=== PATIENT | female | born 2000 | race Caucasian/White ===

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

== ENCOUNTER 2019-05-10 19:03 | Emergency (ER) | payer MEDICAID ==
[~2019-05-10] VITALS: Ht 165.1 cm; Wt 59.0 kg
[2019-05-10 19:21] VITALS: BP 115/58
--- NOTE | 2019-05-10 19:25 | NUR ---
18 Y/O F PRESENTED TO ED WTIH C/O VAGINAL BLEEDING X4 HOURS. PT IS APPROX 6-8 WEEKS . LMP 01/08/19. LOWER ABDOMINAL PAIN AND CRAMPING, 10/10 PAIN. ABDOMEN NON-TENDER. PER PT "DISCHARFE STARTED OUT BROWN AND THEN A FEW HOURS LATER TURNED TO PINKISH-BRIGHT RED." C/O INTENSE MORNING SICKNESS RESULTING APPETITE CHANGES. ERMD NOTIFIED. WILL CONTINUE TO MONITOR.
--- NOTE | 2019-05-10 19:25 | NUR ---
PT AMBULATED TO BED 8.
--- NOTE | 2019-05-10 19:53 | NUR ---
Dr. Nogueira evaluating patient at bedside.
[2019-05-10 20:18] LABS: BASOPHILS % (AUTO) 0.4 % (0.0-2.0); EOSINOPHILS # (AUTO) 0.1 K/uL (0-0.4); EOSINOPHILS % (AUTO) 0.7 % (0.0-4.0); HEMATOCRIT 36.7 % (36-48); HEMOGLOBIN 12.4 g/dL (12.0-16.0); LYMPHOCYTES # (AUTO) 2.4 K/uL (2.5-16.5); LYMPHOCYTES % (AUTO) 29.4 % (20.5-51.1); MEAN CORPUSCULAR HEMOGLOBIN 29 pg (27-31); MEAN CORPUSCULAR HGB CONC 34 g/dL (33-37); MONOCYTES # (AUTO) 0.7 K/uL (0.8-1.0); MONOCYTES % (AUTO) 8.7 % (1.7-9.3); NEUTROPHILS % (AUTO) 60.8 % (42.2-75.2); PLATELET COUNT (AUTO) 212 K/uL (140-450); RED BLOOD CELL COUNT(AUTO) 4.27 MIL/uL (4.20-5.40); RED CELL DISTRIBUTION WIDTH 12.8 % (11.6-13.7); WHITE BLOOD COUNT (AUTO) 8.3 K/uL (4.5-11.0)
[2019-05-10 20:20] LABS: APPEARANCE,URINE HAZY (CLEAR); BILIRUBIN,URINE NEGATIVE (NEGATIVE); BLOOD, URINE 1+ (NEGATIVE); COLOR,URINE YELLOW (YELLOW); LEUKOCYTE ESTERASE ,URINE 1+ (NEGATIVE); NITRITE, URINE NEGATIVE (NEGATIVE); UGLUCOSE NEGATIVE (NEGATIVE)
--- NOTE | 2019-05-10 20:31 | NUR ---
Ultrasound at bedside.
[2019-05-10] MEDS ORDERED: NITROFURANTOIN 100 MG CAP PO ONE (20:50)
--- NOTE | 2019-05-10 20:59 | NUR ---
PT AWAKE, LYING IN BED. FAMILY AT BEDSIDE. VSS AT THIS TIME. WILL CONTINUE TO MONITOR.
--- NOTE | 2019-05-10 21:15 | NUR ---
PT REFUSED RHOGAM INJECTION. DECLINATION SIGNED. DR. BURDEN MADE AWARE.
[2019-05-10] MEDS ORDERED: diphenhydrAMINE 50 MG CAP PO ONE (21:30)
--- NOTE | 2019-05-10 21:35 | NUR ---
PT AGREED TO RHOGAM INJECTION. CONSENT SIGNED.
--- NOTE | 2019-05-10 21:45 | NUR ---
PT C/O NAUSEA. ERMD NOTIFIED. WILL CONTINUE TO MONITOR.
[2019-05-10] MEDS ORDERED: ONDANSETRON 4 MG/2 ML VIAL IVP ONE (21:55)
[2019-05-10] MEDS ORDERED: NACL 0.9% 1,000 ML IV ONE (21:55)
[2019-05-10 22:52] VITALS: BP 110/61
--- NOTE | 2019-05-10 23:45 | NUR ---
RHOGAM INJECTION ADMINSTERED. PT DID NOT WANT TO WAIT TO ALLOW TO WATCH FOR ADVERSE REACTION. RISKS ADN BENEFITS EXPLAINED.
== END 2019-05-10 23:50 | disposition home or self-care (01) ==
LOC: MED 19:03
DX: O20.0 Threatened abortion (principal); O23.41 Unspecified infection of urinary tract in pregnancy, first trimester; Z3A.01 Less than 8 weeks gestation of pregnancy; Z91.013 Allergy to seafood; Z91.018 Allergy to other foods
CPT/HCPCS: 36415; 76817; 81001; 81025; 84702; 85025; 86850; 86886; 86900; 86901; 87086; 96374; 99284; J2405; J2790; J7030; Q0092; Q0163

== ENCOUNTER 2019-05-15 22:21 | Emergency (ER) | payer MEDICAID ==
[~2019-05-15] VITALS: Ht 167.6 cm; Wt 59.0 kg
[2019-05-15 22:30] VITALS: BP 110/63
--- NOTE | 2019-05-15 22:33 | NUR ---
TO LOBBY A/W BED, AMBULATORY
--- NOTE | 2019-05-16 00:09 | NUR ---
PT CALLED WITH NO RESPONSE. LWBS AT 0009.
--- NOTE | 2019-05-16 00:15 | NUR ---
PT CALLED AT THIS TIME, NO RESPONSE.
--- NOTE | 2019-05-16 00:25 | NUR ---
PT CALLED AT THIS TIME, NO RESPONSE. PT LWBS AT 0009.
== END 2019-05-16 00:09 | disposition left against medical advice (07) ==
LOC: MED 22:21
DX: O20.9 Hemorrhage in early pregnancy, unspecified (principal); O26.891 Other specified pregnancy related conditions, first trimester; M54.5 Low back pain; M79.632 Pain in left forearm; Z3A.01 Less than 8 weeks gestation of pregnancy; Z53.21 Procedure and treatment not carried out due to patient leaving prior to being seen by health care provider

== ENCOUNTER 2019-05-19 20:20 | Emergency (ER) | payer MEDICAID ==
[~2019-05-19] VITALS: Ht 167.6 cm; Wt 59.0 kg
[2019-05-19 20:26] VITALS: BP 110/64
--- NOTE | 2019-05-19 20:30 | NUR ---
PT TAKEN TO BED 1
--- NOTE | 2019-05-19 20:33 | NUR ---
Dr. Gotti examining patient.
--- NOTE | 2019-05-19 20:35 | NUR ---
PT IS A 18 Y/O FEMALE WHO PRESENTS TO THE ED C/O LOWER ABD PAIN. PER PT SYMPTOMS HAVE BEEN GOING ON X3 DAYS, REPORTS BEING X8 WEEKS LMP 01/20. PT REPORTS 8/10 CRAMPING LOWER ABD PAIN AND LOW BACK PAIN. NO OBVIOUS TRAUMA/DEFORMITY. THAT DOES NOT RADIATE. PT DENIES CP, SOB, REPORTS NAUSEA/VOMITING DENIES DIARRHEA. ALSO REPORTS VAGINAL BLEEDING. PT AWAKE AND ALERT, RR EVEN/UNLABORED. PT REPOSITIONED FOR COMFORT, BED IN LOWEST POSITION. ER MD DR. LOZANO NOTIFIED. WILL CONTINUE TO MONITOR. DENIES PMH ALLERGIES--GLUTEN, SHRIMP
[2019-05-19] MEDS ORDERED: NACL 0.9% 1,000 ML IV ONE (20:40)
[2019-05-19] MEDS ORDERED: ONDANSETRON 4 MG/2 ML VIAL IVP ONE (20:40)
[2019-05-19 21:01] LABS: BASOPHILS % (AUTO) 0.3 % (0.0-2.0); EOSINOPHILS # (AUTO) 0.1 K/uL (0-0.4); EOSINOPHILS % (AUTO) 0.5 % (0.0-4.0); HEMATOCRIT 39.8 % (36-48); HEMOGLOBIN 13.4 g/dL (12.0-16.0); LYMPHOCYTES # (AUTO) 2.2 K/uL (2.5-16.5); LYMPHOCYTES % (AUTO) 20.8 % (20.5-51.1); MEAN CORPUSCULAR HEMOGLOBIN 29 pg (27-31); MEAN CORPUSCULAR HGB CONC 34 g/dL (33-37); MEAN CORPUSCULAR VOLUME 86.7 fL (80-94); MONOCYTES # (AUTO) 0.7 K/uL (0.8-1.0); MONOCYTES % (AUTO) 6.7 % (1.7-9.3); NEUTROPHILS # (AUTO) 7.4 K/uL (1.8-7.7); NEUTROPHILS % (AUTO) 71.7 % (42.2-75.2); PLATELET COUNT (AUTO) 216 K/uL (140-450); RED BLOOD CELL COUNT(AUTO) 4.59 MIL/uL (4.20-5.40); RED CELL DISTRIBUTION WIDTH 13.2 % (11.6-13.7); WHITE BLOOD COUNT (AUTO) 10.4 K/uL (4.5-11.0)
[2019-05-19 21:07] LABS: APPEARANCE,URINE CLEAR (CLEAR); BILIRUBIN,URINE NEGATIVE (NEGATIVE); BLOOD, URINE NEGATIVE (NEGATIVE); COLOR,URINE YELLOW (YELLOW); LEUKOCYTE ESTERASE ,URINE NEGATIVE (NEGATIVE); NITRITE, URINE NEGATIVE (NEGATIVE); UGLUCOSE NEGATIVE (NEGATIVE)
[2019-05-19 21:33] LABS: ANION GAP 15.4 (8-16); CARBON DIOXIDE 25.9 mmol/L (21-32); CREATININE 0.5 mg/dL (0.6-1.3); POTASSIUM 3.3 mmol/L (3.5-5.1)
[2019-05-19 21:38] LABS: ALBUMIN 4.2 g/dL (3.4-5.0); TOTAL BILIRUBIN 0.3 mg/dL (0.0-1.0)
--- NOTE | 2019-05-19 22:42 | NUR ---
PT MOVED TO ER BED 7
--- NOTE | 2019-05-19 23:00 | NUR ---
PATIENT REPORT GIVEN TO JENNA LOYA. TRANSFER OF CARE AT THIS TIME.
[2019-05-19 23:18] VITALS: BP 116/79
--- NOTE | 2019-05-19 23:19 | NUR ---
Patient discharged with v/s stable. Written and verbal after care instructions given and explained. Patient alert, oriented and verbalized understanding of instructions. Ambulatory with steady gait. All questions addressed prior to discharge. ID band removed. Patient advised to follow up with PMD. Rx of DICLEGIS given. Patient educated on indication of medication including possible reaction and side effects. Opportunity to ask questions provided and answered.
--- NOTE | 2019-05-20 12:53 | NUR ---
Late entry. Confirmed with RN that 0.9 NS 1000ml IV bolus completed at 2150.
== END 2019-05-19 23:19 | disposition home or self-care (01) ==
LOC: MED 20:20
DX: O21.8 Other vomiting complicating pregnancy (principal); O26.891 Other specified pregnancy related conditions, first trimester; M54.5 Low back pain; Z3A.01 Less than 8 weeks gestation of pregnancy; Z91.013 Allergy to seafood; Z91.018 Allergy to other foods; Z98.890 Other specified postprocedural states
CPT/HCPCS: 36415; 76817; 80053; 81003; 81025; 84702; 85025; 96361; 96374; 99284; J2405; J7030; Q0092

== ENCOUNTER 2019-09-04 19:13 | Emergency (ER) | payer MEDICAID ==
[~2019-09-04] VITALS: Ht 165.1 cm; Wt 59.0 kg
[2019-09-04 19:20] VITALS: BP 124/71
--- NOTE | 2019-09-04 19:20 | NUR ---
TO BED # 07 AMBULATORY
--- NOTE | 2019-09-04 19:44 | NUR ---
Dr. Aguiar examining patient.
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
[2019-09-04 20:25] VITALS: BP 104/53
--- NOTE | 2019-09-04 20:25 | NUR ---
PT DISCHARGED WITH PAPERWORK. RX MOTRIN AND TYLENOL FOR PAIN. EDUCATED PT REGARDING MEDICATIONS AND S/E. EDUCATED PT REGARDING D/C DIAGNOSIS AND INSTRUCTIONS. PT VERBALIZED UNDERSTANDING OF TEACHING. ADVISED PT TO GO TO [employer] IF SHE WISHES TO REPORT INCIDENT. TOLD PT TO FOLLOW UP WITH PCP AND WHEN TO RETURN TO ED. PT VSS. ALL QUESTIONS ANSWERED.
== END 2019-09-04 20:25 | disposition home or self-care (01) ==
LOC: MED 19:13
DX: S06.0X9A Concussion with loss of consciousness of unspecified duration, initial encounter (principal); S00.83XA Contusion of other part of head, initial encounter; S90.31XA Contusion of right foot, initial encounter; S02.5XXA Fracture of tooth (traumatic), initial encounter for closed fracture; Z98.890 Other specified postprocedural states; Z88.8 Allergy status to other drugs, medicaments and biological substances; Z91.013 Allergy to seafood; Y09 Assault by unspecified means; Y93.89 Activity, other specified; Y92.89 Other specified places as the place of occurrence of the external cause; Y99.8 Other external cause status
CPT/HCPCS: 81025; 99283

== ENCOUNTER 2019-11-18 00:15 | Emergency (ER) | payer MEDICAID ==
[~2019-11-18] VITALS: Ht 165.1 cm; Wt 58.1 kg
[2019-11-18 00:20] VITALS: BP 113/68
--- NOTE | 2019-11-18 00:22 | NUR ---
TO LOBY A/W BED AMBULATORY
--- NOTE | 2019-11-18 01:07 | NUR ---
PT AMBULATED TO ER BED 04
--- NOTE | 2019-11-18 01:19 | NUR ---
Dr. Gotti examining patient.
--- NOTE | 2019-11-18 01:23 | NUR ---
PELVIC EXAM COMPLETED BY DR. LOZANO.
--- NOTE | 2019-11-18 01:40 | NUR ---
19 Y/O FEMALE PRESENTS TO ED WITH IUD PLACEMENT INSPECTION. PT C/O ABDOMINAL CRAMPING. PT DENIES ANY PAIN URINATING. NO HEMATURIA NOTED. PT DENIES ANY ABDOMINAL PAIN. PT VSS. ERMD AWARE. WILL CONTINUE TO MONITOR.
--- NOTE | 2019-11-18 02:15 | NUR ---
Pt left without DC instructions and DC paperwork. Dr. smith made aware.
== END 2019-11-18 02:15 | disposition home or self-care (01) ==
LOC: MED 00:15
DX: R10.2 Pelvic and perineal pain (principal); Z30.431 Encounter for routine checking of intrauterine contraceptive device; Z91.013 Allergy to seafood; Z91.02 Food additives allergy status
CPT/HCPCS: 81002; 81025; 99283

== ENCOUNTER 2019-12-20 23:04 | Emergency (ER) | payer MEDICAID ==
--- NOTE | 2019-12-20 23:10 | NUR ---
PATIENT CALLED TO BE TRIAGE ,NO RESPONSE PATIENT LEFT WITHOUT BEING SEEN BY DR. CUEVAS. NO FURTHER CARE PROVIDED FOR PATIENT.
--- NOTE | 2019-12-20 23:15 | NUR ---
CALLED FOR THE SECOND TIME NO RESPONSE
--- NOTE | 2019-12-20 23:20 | NUR ---
CALLED FOR THE THIRD TIME NO RESPONSE
== END 2019-12-20 23:10 | disposition left against medical advice (07) ==
LOC: MED 23:04
DX: R51 Headache (principal); Z53.21 Procedure and treatment not carried out due to patient leaving prior to being seen by health care provider

== ENCOUNTER 2020-08-25 20:42 | Emergency (ER) | payer MEDICAID ==
[~2020-08-25] VITALS: Ht 170.2 cm; Wt 59.4 kg
[2020-08-25 20:48] VITALS: BP 123/50
--- NOTE | 2020-08-25 20:53 | NUR ---
PT AMBULATED TO BED 07.
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
--- NOTE | 2020-08-25 20:59 | NUR ---
ERMD AT BEDSIDE EVALUATING PT
[2020-08-25] MEDS ORDERED: ONDANSETRON 4 MG/2 ML VIAL IM ONE (21:05)
[2020-08-25] MEDS ORDERED: ONDANSETRON 4 MG ODT PO ONE (21:10)
--- NOTE | 2020-08-25 21:30 | NUR ---
PT HAD ANOTHER VOMITING EPISODE. ERMD MADE AWARE. ORDERS RECEIEVED.
[2020-08-25] MEDS ORDERED: PROCHLORPERAZINE 10 MG/2 ML VIAL IM ONE (21:35)
[2020-08-25 22:00] VITALS: BP 123/50
--- NOTE | 2020-08-25 22:00 | NUR ---
Patient discharged with v/s stable. Written and verbal after care instructions given and explained. Patient alert, oriented and verbalized understanding of instructions. Ambulatory with steady gait. All questions addressed prior to discharge. ID band removed. Patient advised to follow up with PMD. Rx of ZOFRAN AND COMPAZINE given. Patient educated on indication of medication including possible reaction and side effects. Opportunity to ask questions provided and answered.
== END 2020-08-25 22:00 | disposition home or self-care (01) ==
LOC: MED 20:42
DX: R10.13 Epigastric pain (principal); R11.2 Nausea with vomiting, unspecified; R19.7 Diarrhea, unspecified; Z91.013 Allergy to seafood; Z91.018 Allergy to other foods
CPT/HCPCS: 81025; 96372; 99283; J0780; Q0162

== ENCOUNTER 2021-04-03 17:51 | Emergency (ER) | payer MEDICAID ==
[~2021-04-03] VITALS: Ht 165.1 cm; Wt 61.2 kg
--- NOTE | 2021-04-03 17:57 | NUR ---
PT AMBULATED TO BED 2, TRAIGED AT BEDSIDE
[2021-04-03 18:00] VITALS: BP 110/80
--- NOTE | 2021-04-03 18:00 | NUR ---
20 y/o F coming from home with c/c hives + migraines. Patient A&Ox4, ambulatory, reports hives that began yesterday at 8PM after eating meal at restaurant. Patient states hives started to her back, and noted this morning upon awakening worsening hives that spread to chest, stomach, and upper arms. Patient also reports nausea, vomiting x 3 episodes yesterday after dinner. Also reports migraine since 10AM this morning; 8/10, throbbing/constant, non-radiating. Denies any food/med allergies. Patient denies any throat tightening, cough, shortness of breath, chest pain, abdominal pain, numbness/tingling to extremities. Patient reports taking Aniyah 24hr and 3 pills of Advil without relief to hives or migraine. privacy specialist in place; VSS; respirations even/unlabored. Bed locked in lowest position, side rails x 1, call light in reach. PMH: Anxiety Meds: Denies QUIRINO Franklinx: 2018
--- NOTE | 2021-04-03 18:41 | NUR ---
Dr. Caruso is evaluating patient at bedside.
[2021-04-03] MEDS ORDERED: LIDOCAINE JELLY 2% 30 ML TUBE TP ONE (18:55)
[2021-04-03] MEDS ORDERED: FAMOTIDINE 20 MG/2 ML VIAL IVP ONE (18:55)
[2021-04-03] MEDS ORDERED: ACETAMINOPHEN 325 MG TAB PO ONE (18:55)
[2021-04-03] MEDS ORDERED: FAMOTIDINE 20 MG TAB ONE (19:03)
--- NOTE | 2021-04-03 19:15 | NUR ---
Report and transfer of care given to VINCENZO Nassar.
[2021-04-03] MEDS ORDERED: FAMO-90 PO (19:16)
[2021-04-03] MEDS ORDERED: CETI10SG1 PO (19:16)
[2021-04-03] MEDS ORDERED: EPIN1KIT32 IM (19:16)
[2021-04-03] MEDS ORDERED: DEC4 PO (19:16)
--- NOTE | 2021-04-03 19:16 | NUR ---
received report from Charlie LOYA for continuity of care
[2021-04-03] MEDS ORDERED: FAMOTIDINE 20 MG TAB PO ONE (19:25)
--- NOTE | 2021-04-03 20:00 | NUR ---
Patient discharged with v/s stable. Written and verbal after care instructions given and explained. Patient alert, oriented and verbalized understanding of instructions. Ambulatory with steady gait. All questions addressed prior to discharge. ID band removed. Patient advised to follow up with PMD. Rx of zyrtec, decadron, epipen, pepcid given. Patient educated on indication of medication including possible reaction and side effects. Opportunity to ask questions provided and answered.
== END 2021-04-03 20:00 | disposition home or self-care (01) ==
LOC: MED 17:51
DX: T78.40XA Allergy, unspecified, initial encounter (principal); R51.9 Headache, unspecified; F41.9 Anxiety disorder, unspecified; Z79.899 Other long term (current) drug therapy; Z88.8 Allergy status to other drugs, medicaments and biological substances; Z91.013 Allergy to seafood; X58.XXXA Exposure to other specified factors, initial encounter
CPT/HCPCS: 99284; J3490

== ENCOUNTER 2021-12-23 14:12 | Emergency (ER) | payer MEDICAID ==
[~2021-12-23] VITALS: Ht 167.6 cm; Wt 74.8 kg
[~2021-12-23 14:12] MED LIST: CETI10SG1 PO; DEC4 PO; EPIN1KIT32 IM; FAMO-90 PO
[2021-12-23 14:52] VITALS: BP 103/55
--- NOTE | 2021-12-23 14:57 | NUR ---
BEVERLY. HANDED ON URINE CUP.
[2021-12-23] MEDS ORDERED: ACETAMINOPHEN 325 MG TAB PO ONE (15:30)
--- NOTE | 2021-12-23 15:30 | NUR ---
21 y/o Female BIB self for vaginal bleeding. Pt describes discharge as a light pink tinge at this time. Abd is soft and tender with + BS x 4 heard upon auscultation. Pt states she is 13 weeks with care received up to this point. PmHx: , breast augmentation. Allergies: Gluten, Shrimp home meds: Denies
--- NOTE | 2021-12-23 15:40 | NUR ---
Lab at bedside to collect lab specimens
--- NOTE | 2021-12-23 15:43 | NUR ---
Handed cork slabs sawyer Laure urine at this time
[2021-12-23 16:26] LABS: BASOPHILS % (AUTO) 0.4 % (0.0-2.0); EOSINOPHILS # (AUTO) 0.1 K/uL (0-0.4); EOSINOPHILS % (AUTO) 1.2 % (0.0-4.0); HEMATOCRIT 35.9 % (36-48); HEMOGLOBIN 12.4 g/dL (12.0-16.0); LYMPHOCYTES # (AUTO) 1.5 K/uL (2.5-16.5); LYMPHOCYTES % (AUTO) 24.6 % (20.5-51.1); MEAN CORPUSCULAR HEMOGLOBIN 30 pg (27-31); MEAN CORPUSCULAR HGB CONC 35 g/dL (33-37); MEAN CORPUSCULAR VOLUME 85.4 fL (80-94); MONOCYTES # (AUTO) 0.6 K/uL (0.8-1.0); MONOCYTES % (AUTO) 8.9 % (1.7-9.3); NEUTROPHILS # (AUTO) 4.1 K/uL (1.8-7.7); NEUTROPHILS % (AUTO) 64.9 % (42.2-75.2); PLATELET COUNT (AUTO) 216 K/uL (140-450); RED CELL DISTRIBUTION WIDTH 12.1 % (11.6-13.7); WHITE BLOOD COUNT (AUTO) 6.3 K/uL (4.8-10.8)
--- NOTE | 2021-12-23 16:40 | NUR ---
US at bedside to perform procedure at this time.
[2021-12-23 16:42] LABS: BILIRUBIN,URINE 1+ (NEGATIVE); BLOOD, URINE 2+ (NEGATIVE); LEUKOCYTE ESTERASE ,URINE NEGATIVE (NEGATIVE); NITRITE, URINE NEGATIVE (NEGATIVE); PH,URINE 7.5 (5.0-9.0); UGLUCOSE NEGATIVE (NEGATIVE)
[2021-12-23 16:45] LABS: APPEARANCE,URINE HAZY (CLEAR); COLOR,URINE AMBER (YELLOW)
[2021-12-23 16:53] LABS: RBC,URINE 0-5 /HPF (0-5); WBC,URINE 0-5 /HPF (0-5)
[2021-12-23] MEDS ORDERED: diphenhydrAMINE 50 MG CAP PO ONE (17:55)
--- NOTE | 2021-12-23 18:05 | NUR ---
INFORMED CONSENT FOR OBTAINED BY REJI CABRERA, CONSENT SIGNED AND WITNESSED AT THIS TIME. PT STATED SHE "MAY" HAVE HAD A REACTION TO RHOGAM AND PER REJI CABRERA, SHE WILL BE PRE-MEDICATED WITH BENADRYL. PT AGREES WITH PRE-MEDICATION AND TO RECEIVE RHOGAM.
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
[2021-12-23] MEDS ORDERED: ACET-1195 PO (18:49)
[2021-12-23 19:04] VITALS: BP 102/63
--- NOTE | 2021-12-23 19:06 | NUR ---
THE PATIENT WAS GIVEN RhO(D) immune globulin ORDERED. THE ORDER WAS VERIFIED BY TWO LICENSED NURSES, NURSE HARMEET Woodruff RN. THE ORDER WAS VERIFIED AT LAB AND AGAINST ADMINISTRATION CONTROL RECORD. THE ORDER WAS VERIFIED AGAINST THE WRIST BAND. BENADRYL WAS GIVEN ORDERED IN CASE OF REACTION. PATIENT VS ARE STABLE AT THIS TIME, NO ADVERSE REACTION NOTED. WILL CONTINUE TO MONITOR FOR 30 MINUTES.
--- NOTE | 2021-12-23 19:22 | NUR ---
Pt report given to Barrera LOYA. Transfer of care at this time.
--- NOTE | 2021-12-23 20:15 | NUR ---
d/c with VSS. d/c education given. opportunity to ask questions given and answered. rx of tylenol given.
== END 2021-12-23 20:15 | disposition home or self-care (01) ==
LOC: MED 14:12
DX: O20.0 Threatened abortion (principal); Z3A.15 15 weeks gestation of pregnancy; Z98.890 Other specified postprocedural states; Z79.899 Other long term (current) drug therapy; Z91.013 Allergy to seafood; Z88.8 Allergy status to other drugs, medicaments and biological substances
CPT/HCPCS: 36415; 76815; 81001; 81025; 84702; 85025; 86886; 86900; 86901; 87086; 99284; J2790; Q0092; Q0163

== ENCOUNTER 2022-11-20 05:05 | Emergency (ER) | payer MEDICAID ==
[~2022-11-20] VITALS: Ht 152.4 cm; Wt 86.2 kg
[~2022-11-20 05:05] MED LIST changes: +ACET-1195 PO
--- NOTE | 2022-11-20 05:09 | NUR ---
Dr. Rock examining patient at [facility].
[2022-11-20 05:10] VITALS: BP 165/82
[2022-11-20] MEDS ORDERED: ONDANSETRON 4 MG/2 ML VIAL IVP ONE (05:10)
[2022-11-20] MEDS ORDERED: LABETALOL 20 MG/4 ML VIAL IVP ONE (05:10)
[2022-11-20] MEDS ORDERED: MORPHINE SULFATE 4 MG/ML SYR IVP ONE (05:10)
[2022-11-20] MEDS ORDERED: NACL 0.9% 1,000 ML IV ONE (05:10)
--- NOTE | 2022-11-20 05:10 | NUR ---
Patient taken to bed 3.
--- NOTE | 2022-11-20 05:13 | NUR ---
PT NEHA BLS. TAKEN TO BED 3
[2022-11-20] MEDS ORDERED: CLONIDINE HYDROCHLORIDE 0.1 MG TAB PO ONE (05:20)
[2022-11-20] MEDS ORDERED: ACETAMINOPHEN EXTRA STRENGTH 500 MG TAB PO ONE (05:20)
[2022-11-20 06:15] VITALS: BP 165/82
--- NOTE | 2022-11-20 06:16 | NUR ---
Patient discharged with v/s stable. Written and verbal after care instructions given and explained. Patient verbalized understanding. Ambulatory with steady gait. All questions addressed prior to discharge. Advised to follow up with PMD.
== END 2022-11-20 06:16 | disposition home or self-care (01) ==
LOC: MED 05:05
DX: I10 Essential (primary) hypertension (principal); E11.9 Type 2 diabetes mellitus without complications; F15.129 Other stimulant abuse with intoxication, unspecified; Z91.013 Allergy to seafood; Z88.8 Allergy status to other drugs, medicaments and biological substances; Z79.4 Long term (current) use of insulin; Z79.899 Other long term (current) drug therapy
CPT/HCPCS: 99283